=== PATIENT | female | born 1980 ===

== ENCOUNTER → 2019-10-13 | Outpatient (CLI) | payer OTHER ==
[2019-10-13 13:30] VITALS: BP 123/81; PULSE 62; RESP 15
--- NOTE | 2019-10-13 13:46 | P.PAINCN ---
History of Present Illness - Reason for Consult Consult date: 10/13/19 - History of Present Illness Lani is 39 years old female with a chronic history of severe low back pain, started 15 years ago after she slipped and fell , and after that ,she start having low back pain issues, the pain is constant and increases with any activity and improved with laying flat, increased with the changing position, she feels her lower extremity weak, she continued to work as a nurse, she denies any fever or night sweats, and she reported that the pain radiated to the buttock with very the addition to the lower extremity, she continued to use Lyrica 200 mg twice a day and Mobic 15 mg daily and Lincoln 5/325 when necessary twice a day, she is getting prescription refill for her medication from her primary care, she denies any side effects of the medication, she tried physical therapy without any benefit, and she is getting some relief from the pain medication. Past Medical History History of Any Multi-Drug Resistant Organisms: None Reported Smoking Status: Never smoker Past Alcohol Use History: Occasional Past Drug Use History: None Reported Medications and Allergies Home Medications Medication Instructions Recorded Confirmed Type Furosemide [Lasix] 80 mg PO DAILY 10/13/19 10/13/19 History HYDROcodone/APAP 5-325MG [Lincoln 1 tab PO BID 10/13/19 10/13/19 History 5-325] Ibuprofen [Motrin] 800 mg PO TID 10/13/19 10/13/19 History Meloxicam [Mobic] 15 mg PO DAILY 10/13/19 10/13/19 History Omeprazole [PriLOSEC] 40 mg PO DAILY 10/13/19 10/13/19 History Potassium Chloride 10 meq PO BID 10/13/19 10/13/19 History Pregabalin [Lyrica] 200 mg PO BID 10/13/19 10/13/19 History Propranolol [Inderal] 40 mg PO BID 10/13/19 10/13/19 History buPROPion SR [Wellbutrin Sr] 300 mg PO DAILY 10/13/19 10/13/19 History busPIRone HCL [Buspar] 15 mg PO BID 10/13/19 10/13/19 History Allergies Allergy/AdvReac Type Severity Reaction Status Date / Time Penicillins Allergy Rash/Hives Verified 10/13/19 13:21 Physical Exam Vitals: Vital Signs Pulse Resp BP Pulse Ox 10/13/19 13:24 62 15 123/81 97 Intake and Output 10/12/19 10/13/19 10/13/19 22:59 06:59 14:59 Other: Weight 106.141 kg REVIEW OF ORGAN SYSTEMS: CONSTITUTIONAL: No fevers or chills. No recent weight loss. EYES: denies troubles with vision. HEENT: No difficulties with hearing. No nosebleeds. No difficulty swallowing. RESPIRATORY: Denies any troubles with breathing or dyspnea on exertion. CARDIOVASCULAR: Denies any chest pain, palpitations, or recent heart attacks. GASTROINTESTINAL: Denies fatty food intolerance. Has change in bowel habits and gas bloat. GENITOURINARY: Denies any blood in urine. Has increased urinary frequency. NEUROLOGICAL: No seizure disorders or headaches. MUSCULOSKELETAL: Has low back pain. SKIN:no skin cancer. No rash. PSYCHIATRIC: Denies current depression or suicidal thoughts. ENDOCRINE: Denies current thyroid disorders. Denies any blood sugar glucose intolerance. HEME/LYMPHATIC: Denies any lumps and bumps around the neck. History of deep venous thrombosis. ALLERGY/IMMUNOLOGY: No immunoglobulin therapy. No immune deficiencies. BREAST: Denies current breast lumps, pain or nipple discharge. Physical Examinations : Constitutiona : Cooperative , not in acute distress . HEENT : nech : supple , no Lymphadenopathy , normal thyroid size . : eyes no ptosis , no icterus, no photophobia . neurologic : Cranial nerve II to XII intact , no focal neurological deffecit . psychatric : alert , oriented X 3 , appropriate affect , intact judgment and insight . Lymphatic : no Lymphadenopathy . musculoskeltal : Cervical Spine motor stregnth in the deltoid and biceps, normal right side , normal Left side motor stregnth biceps and the wrist extensors normal right side ,normal left side . motor stregnth in the triceps muscle . normal Right side , normal Left side Lumber spine moter stegnth lower extremities ,thigh and legs 5/5 Right side , 5/5 Left side deep tendon reflexes : normal Knee Jerk , normal ankle Jerk lumber facet Loading Test= positive Right , positive Left Range of motion of the lumbar spine Flexion 60 , extension 30 strait leg raising test = negative bilaterally Fabere test= negative bilaterally Sever tenderness over the Sacroiliac joint on the Right , and Left sides Gaenslen test= positive bilaterally. Seated flexion test= positive bilaterally. Results Comments: MRI of the lumbar spine done at [facility] MRI= normal Assessment and Plan Plan: Assessment and plan=1. Chronic low back pain secondary to bilateral sacroiliitis and bilateral sacroiliac joint dysfunction she could benefit from bilateral sacroiliac joint steroid injection under fluoroscopy guidance, the patient should continue her current medication is prescribed and ordered by her primary care physician, treatment plan discussed with the patient and she agreed with the preceding Time with Patient: Greater than 30 PQRS Measure Charge Sheet Measure #130: Documentation of Current Meds in Medical Chart: Patient's medications documented in chart Measure #226: Tobacco Use: Screen & Cessation Intervention: Pt not a tobacco user Measure #111: Pneumonia Vaccination: Pneumococcal vaccine NOT administered or previously given Measure #47: Advance Care Plan: Advance care planning discussed & documented, pt chose/unable to give Measure #412: Opioid Treatment Agreement: No documentation of signed opioid treatment agreement Measure #408: Opioid Therapy Follow-up Evaluation: Patient had NO f/u eval minimum every 3 months during opioid therapy Measure #317: Preventitive Care & Scrn High Bld Press & F/U: Normal blood pressure, f/u not required Measure #128: Body Mass Index (BMI) Screening & Follow-up: BMI documented ABOVE normal parameters - f/u documented Measure #131: Pain Assessment & Follow-up: Pain positive & plan documented, Follow-up scheduled Measure #431: Unhealthy Alcohol Use Preventative Care & Scrn: Patient not identified as an unhealthy alcohol user PQRS Narrative: Smoking Status Never smoker Blood Pressure 123/81 Pain Intensity [Bilateral 4 Lower Back] Scale Used Numeric (1 - 10) Home Medications: Ambulatory Orders Furosemide [Lasix] 80 mg PO DAILY 10/13/19 HYDROcodone/APAP 5-325MG [Lincoln 5-325] 1 tab PO BID 10/13/19 Ibuprofen [Motrin] 800 mg PO TID 10/13/19 Meloxicam [Mobic] 15 mg PO DAILY 10/13/19 Omeprazole [PriLOSEC] 40 mg PO DAILY 10/13/19 Potassium Chloride 10 meq PO BID 10/13/19 Pregabalin [Lyrica] 200 mg PO BID 10/13/19 Propranolol [Inderal] 40 mg PO BID 10/13/19 buPROPion SR [Wellbutrin Sr] 300 mg PO DAILY 10/13/19 busPIRone HCL [Buspar] 15 mg PO BID 10/13/19
== END | disposition home or self-care (01) ==
LOC: PNWHC3 12:48
PROVIDERS: ATTEND Specialist
DX: G89.29 Other chronic pain (principal); M46.1 Sacroiliitis, not elsewhere classified; M53.3 Sacrococcygeal disorders, not elsewhere classified; Z79.891 Long term (current) use of opiate analgesic; Z79.1 Long term (current) use of non-steroidal anti-inflammatories (NSAID); Z79.899 Other long term (current) drug therapy; Z88.0 Allergy status to penicillin
CPT/HCPCS: 99201

== ENCOUNTER 2019-11-04 08:39 | Day surgery (SDC) | payer OTHER ==
[~2019-11-04 08:39] MED LIST: LACTATED RINGERS 1,000 ML IV SCH
[2019-11-04 09:03] VITALS: RESP 16; TEMP 98.7
--- NOTE | 2019-11-04 09:43 | P.PCN ---
Date of Procedure: 11/04/19 Procedure(s) Performed: Procedure= bilateral sacral iliac joints steroid injection under fluoroscopy guidance (fluoroscopy image stored on file in the radiology Department ) Preoperative diagnosis= 1-bilateral sacroiliitis 2-bilateral sacroiliac joint dysfunction Postoperative diagnosis=1-bilateral sacroiliitis 2-bilateral sacroiliac joint dysfunction Complication = none Condition= stable Anesthesia= moderate sedation with intravenous Versed 2 mg , and fentanyl 50 micrograms and local infiltration with lidocaine 1% 4 mL Indication for the procedure= patient complaining of low back pain , examination was positive for severe tenderness over the sacroiliac joints bilaterally and patient diagnosed with sacroiliitis, for this reason he/ she was good candidate for sacroiliac joint steroid injection. Description of the procedure= procedure risk and benefits discussed with the patient, including but not limited, risk of infection and bleeding, and ALLERGIC reaction to the medication and not complete pain relief and patient agreed with the preceding patient taken to the operating room, placed in prone position or standard monitors applied to the patient then after induction of anesthesia back prepped with chlorhexidine 3 times , Then under strict sterile technique, first I did the right sacroiliac joint the which was identified under fluoroscopy guidance been local infiltration of the skin and subcu interstitial with lidocaine 1% then 22-gauge 5 inches long Quincke Needle advanced slowly under fluoroscopy and placed in the right sacroiliac joint needle placement confirmed with AP and oblique and lateral view and after appropriate needle placement confirmed and after negative aspiration, or heme , then Ropivacaine 0.5% 3 mL, and 40 mg of Depo-Medrol mixed together and injected in the right sacroiliac joint after negative aspiration patient tolerated the procedure well without any complication. Then the left sacroiliac joint steroid injection done under strict sterile technique local infiltration of the skin and subcu interstitial at the location of the left sacroiliac joint then a 22-gauge Quincke Needle advanced slowly under fluoroscopy time placed in the left sacroiliac joint, needle placement confirmed with AP and oblique and lateral view then after appropriate needle placement confirmed and after negative aspiration 0.5% Marcaine 3 mL and 40 mg of Depo-Medrol injected in the left sacroiliac joint after negative aspiration patient tolerated the procedure well that any complications and she will follow up in clinic 3 weeks
[2019-11-04] MEDS ORDERED: IV FLUID CONTINUATION 750 ML IV ONE (09:48)
[2019-11-04 10:18] VITALS: BP 108/62; PULSE 78
--- NOTE | 2019-11-04 11:30 | FL ---
Fluoroscopy HISTORY: Pain 8 seconds fluoroscopy time supplied to the referring clinician. 2 intraoperative C-arm images docume nt the procedure. See dictated report from anesthesia.
== END 2019-11-04 10:24 | disposition home or self-care (01) ==
LOC: ORPAIN 08:39
PROVIDERS: ATTEND Specialist
DX: M46.1 Sacroiliitis, not elsewhere classified (principal); M53.3 Sacrococcygeal disorders, not elsewhere classified; Z88.0 Allergy status to penicillin
CPT/HCPCS: J2250; J1030; J3010; G0260

== ENCOUNTER → 2019-12-02 | Day surgery (SDC) | payer OTHER ==
[2019-11-27 16:00] VITALS: BMI 40.2
[~2019-12-02] MED LIST changes: +BUPIVACAINE (PF) 0.5% 30 ML VIAL ONE; +IV FLUID CONTINUATION 850 ML IV ONE; +MIDAZOLAM 2 MG/2 ML VIAL ONE; +fentaNYL (PF) 50 MCG/ML 2 ML AMP ONE; +methylPREDNISolone ACETATE 40 MG/ML 1 ML VIAL ONE
[2019-12-02 09:16] VITALS: TEMP 97
--- NOTE | 2019-12-02 10:13 | P.PCN ---
Date of Procedure: 12/02/19 Procedure(s) Performed: Procedure(s) Performed: Procedure= bilateral sacral iliac joints steroid injection under fluoroscopy guidance (fluoroscopy image stored on file in the radiology Department ) Preoperative diagnosis= 1-bilateral sacroiliitis 2-bilateral sacroiliac joint dysfunction Postoperative diagnosis=1-bilateral sacroiliitis 2-bilateral sacroiliac joint dysfunction Complication = none Condition= stable Anesthesia= moderate sedation with intravenous Versed 2 mg , and fentanyl 50 micrograms and local infiltration with lidocaine 1% 4 mL Indication for the procedure= patient complaining of low back pain , examination was positive for severe tenderness over the sacroiliac joints bilaterally and patient diagnosed with sacroiliitis, she was good candidate for sacroiliac joint steroid injection. Description of the procedure= procedure risk and benefits discussed with the patient, including but not limited, risk of infection and bleeding, and ALLERGIC reaction to the medication and not complete pain relief and patient agreed with the preceding patient taken to the operating room, placed in prone position or standard monitors applied to the patient then after induction of anesthesia back prepped with chlorhexidine 3 times , Then under strict sterile technique, first I did the right sacroiliac joint the which was identified under fluoroscopy guidance been local infiltration of the skin and subcu interstitial with lidocaine 1% then 22-gauge 5 inches long Quincke Needle advanced slowly under fluoroscopy and placed in the right sacroiliac joint needle placement confirmed with AP and oblique and lateral view and after appropriate needle placement confirmed and after negative aspiration, or heme , then Ropivacaine 0.5% 3 mL, and 20 mg of Depo-Medrol mixed together and injected in the right sacroiliac joint after negative aspiration patient tolerated the procedure well without any complication. Then the left sacroiliac joint steroid injection done under strict sterile technique local infiltration of the skin and subcu interstitial at the location of the left sacroiliac joint then a 22-gauge Quincke Needle advanced slowly under fluoroscopy time placed in the left sacroiliac joint, needle placement confirmed with AP and oblique and lateral view then after appropriate needle placement confirmed and after negative aspiration 0.5% Marcaine 3 mL and 20 mg of Depo-Medrol injected in the left sacroiliac joint after negative aspiration patient tolerated the procedure well that any complications and she will follow up in clinic 3 weeks
[2019-12-02 11:00] VITALS: BP 113/76; PULSE 76; RESP 20
--- NOTE | 2019-12-02 11:17 | FL ---
Fluoroscopy HISTORY: Pain 15 seconds fluoroscopy time supplied to the referring clinician. 2 intraoperative C-arm images docum ent the procedure. See dictated report from anesthesia.
== END ==
LOC: ORPAIN 08:04
PROVIDERS: ATTEND Specialist
DX: M46.1 Sacroiliitis, not elsewhere classified (principal); M53.3 Sacrococcygeal disorders, not elsewhere classified; B37.9 Candidiasis, unspecified; Z88.0 Allergy status to penicillin; Z90.710 Acquired absence of both cervix and uterus
CPT/HCPCS: J2250; J1030; J3010; G0260

== ENCOUNTER → 2019-12-22 | Outpatient (CLI) | payer SELFPAY ==
[2019-12-22 15:18] VITALS: BP 139/89; PULSE 90; RESP 18
--- NOTE | 2019-12-23 12:55 | P.PAINPG ---
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 Brunswick 5/325 when necessary Mobic 15 mg daily and Lyrica 200 mg twice a day, he denies any side effect of the medication, but she reported that the current medication is not helping enough to control the pain, she denies any motor or sensory deficits but she reported that she feels her lower extremity weak secondary to the intensity of the pain Objective - Vital Signs Vital signs: Vital Signs Temp Pulse 90 12/22/19 15:09 Resp 18 12/22/19 15:09 BP 139/89 12/22/19 15:09 Pulse Ox 98 12/22/19 15:09 Intake & Output 12/22/19 12/23/19 12/23/19 18:59 06:59 18:59 Weight 113.398 kg - Exam Constitutiona : Cooperative , not in acute distress . HEENT : nech : supple , no Lymphadenopathy , normal thyroid size . : eyes no ptosis , no icterus, no photophobia . neurologic : Cranial nerve II to XII intact , no focal neurological deffecit . psychatric : alert , oriented X 3 , appropriate affect , intact judgment and insight . Lymphatic : no Lymphadenopathy . musculoskeltal : Cervical Spine motor stregnth in the deltoid and biceps, normal right side , normal Left side motor stregnth biceps and the wrist extensors normal right side ,normal left side . motor stregnth in the triceps muscle . normal Right side , normal Left side Lumber spine moter stegnth lower extremities ,thigh and legs 5/5 Right side , 5/5 Left side deep tendon reflexes : normal Knee Jerk , normal ankle Jerk lumber facet Loading Test= positive Right , positive Left Range of motion of the lumbar spine Flexion 60 , extension 30 strait leg raising test = negative bilaterally Fabere test= negative bilaterally Sever tenderness over the Sacroiliac j oint on the Right , and Left sides Gaenslen test= positive bilaterally. Seated flexion test= positive bilaterally. MRI of the lumbar spine reviewed Assessment and Plan Plan: Assessment and plan= 1-bilateral sacroiliitis, bilateral sacroiliac joint dysfunction 2-lumbar spondylosis with lumbar facet arthropathy. Patient had no benefit from sacroiliac joint steroid injections x2 , she had 0 benefit, she continued to have severe low back pain Patient will be good candidate to have diagnostic medial branch block lumbar area L3, L4, L5 x2 possible RFA Patient would continue to use [place], Mobic, Lyrica is prescribed by her primary care Patient able to work secondary to the intensity of the pain, patient will be referred to physical therapy for functional capacity evaluation. Time with Patient: Less than 30 PQRS Measure Charge Sheet Measure #130: Documentation of Current Meds in Medical Chart: Patient's medications documented in chart Measure #226: Tobacco Use: Screen & Cessation Intervention: Pt not a tobacco user Measure #111: Pneumonia Vaccination: Pneumococcal vaccine NOT administered or previously given Measure #47: Advance Care Plan: Advance care planning discussed & documented, pt chose/unable to give Measure #412: Opioid Treatment Agreement: No documentation of signed opioid treatment agreement Measure #408: Opioid Therapy Follow-up Evaluation: Patient had NO f/u eval minimum every 3 months during opioid therapy Measure #317: Preventitive Care & Scrn High Bld Press & F/U: Normal blood pressure, f/u not required Measure #128: Body Mass Index (BMI) Screening & Follow-up: BMI documented ABOVE normal parameters - f/u documented Measure #131: Pain Assessment & Follow-up: Pain positive & plan documented, Follow-up scheduled Measure #431: Unhealthy Alcohol Use Preventative Care & Scrn: Patient not identified as an unhealthy alcohol user PQRS Narrative: Smoking Status Never smoker Blood Pressure 139/89 Pain Intensity [Bilateral 5 Lower Back] Hx Alcohol Use (MH) No Home Medications: Ambulatory Orders Furosemide [Lasix] 80 mg PO DAILY 10/13/19 HYDROcodone/APAP 5-325MG [Brunswick 5-325] 1 tab PO BID 10/13/19 Ibuprofen [Motrin] 800 mg PO TID 10/13/19 Meloxicam [Mobic] 15 mg PO DAILY 10/13/19 Omeprazole [PriLOSEC] 40 mg PO DAILY 10/13/19 Potassium Chloride 10 meq PO BID 10/13/19 Pregabalin [Lyrica] 200 mg PO BID 10/13/19 Propranolol [Inderal] 60 mg PO BID 10/13/19 buPROPion SR [Wellbutrin Sr] 300 mg PO DAILY 10/13/19 busPIRone HCL [Buspar] 15 mg PO BID 10/13/19 Levothyroxine Sodium [Synthroid] 25 mcg PO DAILY 11/27/19 Atorvastatin Calcium [Lipitor] 20 mg PO DAILY 12/22/19 Lisinopril [Zestril] 2.5 mg PO DAILY 12/22/19 Controlled Substance Measures - Controlled Substance Measures Is patient prescribed a controlled substance at discharge?: No
== END | disposition home or self-care (01) ==
LOC: PNWHC3 13:54
PROVIDERS: ATTEND Specialist
DX: G89.29 Other chronic pain (principal); M46.1 Sacroiliitis, not elsewhere classified; M47.816 Spondylosis without myelopathy or radiculopathy, lumbar region; M46.96 Unspecified inflammatory spondylopathy, lumbar region; M53.3 Sacrococcygeal disorders, not elsewhere classified; Z79.891 Long term (current) use of opiate analgesic; Z79.1 Long term (current) use of non-steroidal anti-inflammatories (NSAID); Z79.899 Other long term (current) drug therapy
CPT/HCPCS: 99211